=== PATIENT | female | born 1990 | race Caucasian/White ===

== ENCOUNTER 2017-11-12 19:11 | Emergency (ER) | payer MEDICAID ==
[2017-11-12 19:27] VITALS: RESP 20
[2017-11-12] MEDS ORDERED: Sodium Chloride 0.9% 1,000 ML IV ONE ×2 (20:04→21:37)
[2017-11-12] MEDS ORDERED: Sodium Chloride 0.9% 1,000 ML ONE ×2 (20:20→21:43)
[2017-11-12 20:21] LABS: BASO % 0.2 % (0.0-2.0); HEMATOCRIT 36.4 % (34.0-47.0); LYMPH # 0.7 K/uL (1.0-4.3); LYMPH % 6.8 % (20.0-40.0); MEAN CELL VOLUME 86.2 fL (81.0-99.0); MEAN CORPUSCULAR HEMOGLOBIN 29.7 pg (27.0-31.0); MEAN CORPUSCULAR HGB CONC 34.5 g/dL (33.0-37.0); MEAN PLATELET VOLUME 8.2 fL (7.2-11.7); MONO # 0.3 K/uL (0.0-0.8); MONO % 3.1 % (0.0-10.0); PLATELET COUNT 322 K/uL (130-400); RED CELL DISTRIBUTION WIDTH 13.6 % (11.5-14.5)
[2017-11-12 20:25] LABS: URINE BILIRUBIN NEGATIVE (NEGATIVE); URINE BLOOD NEGATIVE (NEGATIVE); URINE COLOR Yellow (YELLOW); URINE GLUCOSE (UA) NORMAL (Normal); URINE KETONE NEGATIVE (NEGATIVE); URINE LEUKOCYTE ESTERASE NEG Leu/uL (Negative); URINE PROTEIN NEGATIVE (NEGATIVE); URINE UROBILINOGEN NORMAL mg/dL (0.2-1.0); WBC URINE 1 /hpf (0-5)
[2017-11-12 20:34] LABS: ALKALINE PHOSPHATASE 48 U/L (38-126); ALT/SGPT 21 U/L (9-52); AST/SGOT 28 U/L (14-36); BILIRUBIN,TOTAL 0.8 mg/dL (0.2-1.3); BLOOD UREA NITROGEN 12 mg/dL (7-17); CALCIUM 8.9 mg/dl (8.6-10.4); CARBON DIOXIDE 27 mmol/L (22-30); CHLORIDE 96 mmol/L (98-107); GFR AFRICAN-AMERICAN > 60; GLUCOSE,RANDOM 82 mg/dL (65-105); POTASSIUM 3.5 mmol/L (3.6-5.2); SODIUM 134 mmol/L (132-148); TOTAL PROTEIN 9.5 g/dL (6.3-8.3)
--- NOTE | 2017-11-12 21:17 | C.PDOC ---
History Of Present Illness 27 y/o female presents to the ED with complaints of body aches, DIAZ, nausea/ vomiting, and abdominal pain since 11 am this morning. Patient denies cough, runny nose, sore throat, sick contact, dysuria, or hematuria. Time Seen by Provider: 11/12/17 19:47 Chief Complaint (Nursing): Fever History Per: Patient History/Exam Limitations: no limitations Onset/Duration Of Symptoms: Hrs (11am this morning) Current Symptoms Are (Timing): Still Present Associated Symptoms: Fever, Chills, Nausea, Vomiting Severity: Moderate Recent travel outside of the [place]: No Past Medical History Reviewed: Historical Data, Nursing Documentation, Vital Signs Vital Signs: Last Vital Signs Temp 99 F 11/12/17 22:55 Pulse 84 11/12/17 22:55 Resp 20 11/12/17 22:55 BP 110/70 11/12/17 22:55 Pulse Ox 98 11/12/17 22:55 - Medical History PMH: No Chronic Diseases Surgical History: No Surg Hx Family History: States: No Known Family Hx - Social History Hx Alcohol Use: No Hx Substance Use: No - Immunization History Hx Tetanus Toxoid Vaccination: No Hx Influenza Vaccination: No Hx Pneumococcal Vaccination: No Review Of Systems Except As Marked, All Systems Reviewed And Found Negative. Constitutional: Positive for: Fever, Chills Cardiovascular: Negative for: Chest Pain, Palpitations Respiratory: Negative for: Cough, Shortness of Breath Gastrointestinal: Positive for: Nausea, Vomiting, Abdominal Pain. Negative for : Diarrhea Genitourinary: Negative for: Dysuria Musculoskeletal: Positive for: Other (body aches) Neurological: Positive for: Headache Physical Exam - Physical Exam Appears: Well, Non-toxic, Other (appears mildly uncomfortable) Skin: Normal Color, Warm, Dry, No Rash Head: Normacephalic Oral Mucosa: Moist Cardiovascular: Rhythm Regular Respiratory: Normal Breath Sounds, No Rales, No Rhonchi, No Wheezing Gastrointestinal/Abdominal: Bowel Sounds, Soft, Tenderness (mild tenderness to palpiation at suprapubic area), No Guarding, No Rebound, Other ((-) McBurney's) Back: No CVA Tenderness Neurological/Psych: Oriented x3 ED Course And Treatment - Laboratory Results Result Diagrams: 11/12/17 22:00 11/12/17 20:16 O2 Sat by Pulse Oximetry: 100 (room air) Pulse Ox Interpretation: Normal Progress Note: Blood word, UA, UPreg and influenza swab ordered and reviewed. Patient given IV NS bolus, IV toradol, IV zofran. Reevaluation Time: 22:45 Reassessment Condition: Improved (Patient reassessed, is resting comfortably and states she feels better. On exam, abdomen is soft and nontender. Vitals improved and patient is comfortable being discharged home. Rxs for naprosyn and zofran given, and patient instructed to follow up with PMD/clinic in 1-2 days. She understands she should return to ED if symptoms worsen.) Disposition Counseled Patient/Family Regarding: Studies Performed, Diagnosis, Need For Followup, Rx Given - Disposition Referrals: [facility] at [facility] [Outside] Disposition: HOME/ ROUTINE Disposition Time: 22:45 Condition: STABLE Additional Instructions: EGUIMIENTO CON RICKETTS MDICO / CLNICA EN 1-2 DEAN USE MEDICAMENTOS SEGN SEA NECESARIO BEBER MUCHO LQUIDO REGRESE AL CARLENE DE EMERGENCIA SI TIENE ALGUNOS SNTOMAS RELACIONADOS Prescriptions: Naproxen 375 mg PO BID PRN #20 tablet PRN Reason: pain Ondansetron [Zofran Odt] 4 mg PO Q8 PRN #10 odt PRN Reason: Nausea/Vomiting Instructions: Viral Syndrome (ED) Forms: [facility] (Sinhala), Work Excuse Print Language: WELSH - POA Present On Arrival: None - Clinical Impression Clinical Impression: Viral syndrome - Scribe Statement The provider has reviewed the documentation as recorded by the Scribe Angelique Garcia All medical record entries made by the Scribe were at my direction and personally dictated by me. I have reviewed the chart and agree that the record accurately reflects my personal performance of the history, physical exam, medical decision making, and the department course for this patient. I have also personally directed, reviewed, and agree with the discharge instructions and disposition.
[2017-11-12 21:29] LABS: NEUTROPHIL 84 % (50-75); TOTAL CELLS COUNTED 100
[2017-11-12 21:30] LABS: LARGE PLATELETS PRESENT
[2017-11-12 22:07] LABS: LYMPH # 0.9 K/uL (1.0-4.3); MONO # 0.3 K/uL (0.0-0.8)
[2017-11-12 22:22] LABS: BASO % 0.2 % (0.0-2.0); LYMPH % 9.6 % (20.0-40.0); MEAN CELL VOLUME 86.1 fL (81.0-99.0); MEAN CORPUSCULAR HEMOGLOBIN 29.5 pg (27.0-31.0); MEAN CORPUSCULAR HGB CONC 34.3 g/dL (33.0-37.0); MEAN PLATELET VOLUME 7.8 fL (7.2-11.7); MONO % 3.7 % (0.0-10.0); RED CELL DISTRIBUTION WIDTH 13.6 % (11.5-14.5); WHITE BLOOD COUNT 9.3 K/uL (4.8-10.8)
[2017-11-12 22:57] VITALS: BP 110/70; PULSE 84; TEMP 99
[2017-11-13 02:44] VITALS: O2SAT 100
== END 2017-11-12 22:55 | disposition home or self-care (01) ==
LOC: C.ER 19:11
DX: B34.9 Viral infection, unspecified (principal)
CPT/HCPCS: 80053; 81001; 83690; 84703; 85025; 87804; 96361; 96374; 96375; 99284; J1885; J2405; J7040

== ENCOUNTER 2017-12-15 10:48 | Emergency (ER) | payer MEDICAID ==
[2017-12-15 11:02] VITALS: BMI 22.6
[2017-12-15 11:05] VITALS: TEMP 98.4; O2SAT 100
[2017-12-15 12:59] LABS: HCG,QUALITATIVE URINE POSITIVE (NEGATIVE)
--- NOTE | 2017-12-15 13:01 | C.PDOC ---
History Of Present Illness 27 y/o female A3 currently 6 weeks presents to ED with complaints of vaginal bleeding yesterday and back pain worsen today which prompted visit to ED. Patient states yesterday when she wiped after urinating noted blood but reports no blood today and admits to urinary frequency. Patient denies fever, chills, nausea, vomiting, dysuria or any other complaints at this time. LMP as per patient. Time Seen by Provider: 12/15/17 11:34 Chief Complaint (Nursing): Abdominal Pain History Per: Patient History/Exam Limitations: no limitations Onset/Duration Of Symptoms: Days Current Symptoms Are (Timing): Still Present Past Medical History Reviewed: Historical Data, Nursing Documentation, Vital Signs Vital Signs: Last Vital Signs Temp 98.4 F 12/15/17 11:02 Pulse 83 12/15/17 14:18 Resp 16 12/15/17 14:18 BP 98/64 L 12/15/17 14:18 Pulse Ox 100 12/15/17 15:10 - Medical History PMH: No Chronic Diseases Surgical History: No Surg Hx Family History: States: No Known Family Hx - Social History Hx Alcohol Use: No Hx Substance Use: No - Immunization History Hx Tetanus Toxoid Vaccination: No Hx Influenza Vaccination: No Hx Pneumococcal Vaccination: No Review Of Systems Constitutional: Negative for: Fever, Chills Gastrointestinal: Negative for: Nausea, Vomiting, Abdominal Pain Genitourinary: Positive for: Frequency, Vaginal Bleeding. Negative for: Dysuria , Hematuria Musculoskeletal: Positive for: Back Pain Skin: Negative for: Rash Physical Exam - Physical Exam Appears: Non-toxic, No Acute Distress Skin: Warm, Dry, No Rash Head: Atraumatic, Normacephalic Eye(s): bilateral: Normal Inspection, EOMI Nose: Normal Oral Mucosa: Moist Neck: Normal ROM, Supple Chest: Symmetrical Cardiovascular: Rhythm Regular Respiratory: Normal Breath Sounds, No Rales, No Rhonchi, No Wheezing Gastrointestinal/Abdominal: Soft, No Tenderness, No Guarding, No Rebound Back: No CVA Tenderness Neurological/Psych: Oriented x3 ED Course And Treatment - Laboratory Results Result Diagrams: 12/15/17 13:21 12/15/17 13:21 O2 Sat by Pulse Oximetry: 100 (RA) Pulse Ox Interpretation: Normal - CT Scan/US Preg 1st Trimester Other Rad Studies (CT/US): Read By Radiologist, Radiology Report Reviewed CT/US Interpretation: Indication: , bleeding. Comparison: Transvaginal pelvic ultrasound performed 03/24/13. Technique: Real-time transabdominal pelvic ultrasound was performed. In addition a transvaginal pelvic ultrasound was necessary to better depict pelvic anatomy. Findings: The uterus measures approximately 11.0 x 5.5 x 6.8 cm. Anteverted. Cervix length measures approximately 4.5 cm. There is a single intrauterine fetus present. 2 mm yolk sac. The gestational sac measures 0.8 cm, out of range for gestational age calculation. The crown-rump length measures 0.2 cm and is compatible with a gestational age of 5 weeks 5 days. heart motion was not detected during this examination. The right ovary measures 2.6 x 1.7 x 2.8 cm. The left ovary measures 3.2 x 2.4 x 3.6 cm and contains 1.6 x 1.5 x 1.8 cm complex/septated cyst. Blood flow was demonstrated to both ovaries. Impression : Single intrauterine with estimated gestational age 5 weeks 5 days by crown-rump length calculation. heart rate was not detected during this examination, which may be due to early stage of . Recommend close interval follow-up. Complex/septated left ovarian cyst measures approximately 1.8 cm. Advise an anomaly screen at 16-18 weeks gestational age. Progress Note: Patient was offered pain medication and refused. Blood work, UA ordered. Pelvis Ultrasound ordered. Discussed results with the pt and was given copy, instructed to follow up with OB in 1-2 days for re-evaluation. Disposition - Disposition Disposition: HOME/ ROUTINE Disposition Time: 14:23 Condition: STABLE Additional Instructions: Your Beta HCG today is 10,000. Follow up with OBGYN doctor in 1-3 days without fail for further evaluation. Take medications as prescribed. Return to the emergency department at any time if symptoms persist or worsen. Prescriptions: Multivit/Folic Acid/I [ Plus] 1 tab PO DAILY #20 tab Instructions: (ED) Forms: [facility] (Sierra Leonean) - Clinical Impression Clinical Impression: First trimester bleeding - PA / RESIDENCY COORDINATOR / Resident Statement MD/DO has reviewed & agrees with the documentation as recorded. - Scribe Statement The provider has reviewed the documentation as recorded by the Gary Kelley All medical record entries made by the Scribe were at my direction and personally dictated by me. I have reviewed the chart and agree that the record accurately reflects my personal performance of the history, physical exam, medical decision making, and the department course for this patient. I have also personally directed, reviewed, and agree with the discharge instructions and disposition.
[2017-12-15 13:03] LABS: SQUAMOUS EPITHIAL < 1 /hpf (0-5); URINE BACTERIA OCC (<OCC); URINE BILIRUBIN NEGATIVE (NEGATIVE); URINE BLOOD NEGATIVE (NEGATIVE); URINE CLARITY Clear (Clear); URINE COLOR Yellow (YELLOW); URINE GLUCOSE (UA) NORMAL (Normal); URINE LEUKOCYTE ESTERASE NEG Leu/uL (Negative); URINE NITRATE NEGATIVE (NEGATIVE); URINE PROTEIN NEGATIVE (NEGATIVE); URINE UROBILINOGEN NORMAL mg/dL (0.2-1.0)
[2017-12-15 13:30] LABS: BASO % 0.6 % (0.0-2.0); EOS % 0.2 % (0.0-4.0); HEMOGLOBIN 12.4 g/dL (11.0-16.0); LYMPH # 1.5 K/uL (1.0-4.3); LYMPH % 24.3 % (20.0-40.0); MEAN CELL VOLUME 85.2 fL (81.0-99.0); MEAN CORPUSCULAR HEMOGLOBIN 30.1 pg (27.0-31.0); MEAN CORPUSCULAR HGB CONC 35.3 g/dL (33.0-37.0); MEAN PLATELET VOLUME 7.7 fL (7.2-11.7); MONO # 0.3 K/uL (0.0-0.8); MONO % 5.1 % (0.0-10.0); NEUT # 4.3 K/uL (1.8-7.0); NEUT % 69.8 % (50.0-75.0); RBC 4.11 Mil/uL (3.80-5.20); RED CELL DISTRIBUTION WIDTH 14.4 % (11.5-14.5); WHITE BLOOD COUNT 6.1 K/uL (4.8-10.8)
[2017-12-15 14:04] LABS: ALBUMIN 4.4 g/dL (3.5-5.0); ALT/SGPT 15 U/L (9-52); AST/SGOT 25 U/L (14-36); BLOOD UREA NITROGEN 9 mg/dL (7-17); CALCIUM 9.3 mg/dl (8.6-10.4); GFR AFRICAN-AMERICAN > 60; GFR NON-AFRICAN AMERICAN > 60
[2017-12-15 14:18] VITALS: BP 98/64; PULSE 83; RESP 16
--- NOTE | 2017-12-15 14:24 | US ---
Indication: , bleeding Comparison: Transvaginal pelvic ultrasound performed 03/24/13 Technique: Real-time transabdominal pelvic ultrasound was performed. In addition a transvaginal pelvic ultrasound was necessary to better depict pelvic anatomy. Findings: The uterus measures approximately 11.0 x 5.5 x 6.8 cm. Anteverted. Cervix length measures approximately 4.5 cm. There is a single intrauterine fetus present. 2 mm yolk sac. The gestational sac measures 0.8 cm, out of range for gestational age calculation. The crown-rump length measures 0.2 cm and is compatible with a gestational age of 5 weeks 5 days. heart motion was not detected during this examination. The right ovary measures 2.6 x 1.7 x 2.8 cm. The left ovary measures 3.2 x 2.4 x 3.6 cm and contains 1.6 x 1.5 x 1.8 cm complex/septated cyst. Blood flow was demonstrated to both ovaries. Impression: Single intrauterine with estimated gestational age 5 weeks 5 days by crown-rump length calculation. heart rate was not detected during this examination, which may be due to early stage of . Recommend close interval follow-up. Complex/septated left ovarian cyst measures approximately 1.8 cm. Advise an anomaly screen at 16-18 weeks gestational age.
== END 2017-12-15 14:36 | disposition home or self-care (01) ==
LOC: C.ER 10:48
DX: O20.9 Hemorrhage in early pregnancy, unspecified (principal); Z3A.01 Less than 8 weeks gestation of pregnancy

== ENCOUNTER 2018-01-31 21:25 | Emergency (ER) | payer MEDICAID ==
[2018-01-31 21:26] VITALS: BMI 22.6
[2018-01-31 21:47] VITALS: BP 109/80; PULSE 94; RESP 20; TEMP 97.9; O2SAT 99
[2018-01-31 22:18] LABS: SQUAMOUS EPITHIAL < 1 /hpf (0-5); URINE BACTERIA OCC (<OCC); URINE BILIRUBIN NEGATIVE (NEGATIVE); URINE BLOOD NEGATIVE (NEGATIVE); URINE CLARITY Clear (Clear); URINE GLUCOSE (UA) NORMAL (Normal); URINE LEUKOCYTE ESTERASE NEG Leu/uL (Negative); URINE PROTEIN NEGATIVE (NEGATIVE); URINE UROBILINOGEN NORMAL mg/dL (0.2-1.0)
[2018-01-31 22:22] LABS: URINE COLOR STRAW (YELLOW)
--- NOTE | 2018-01-31 22:30 | C.PDOC ---
History Of Present Illness 27 y/o female, approx 12 weeks preg, c/o difficulty breathing due to stuffy nose for last few days with occasional cough. no fever or chillls. Time Seen by Provider: 01/31/18 21:49 Chief Complaint (Nursing): Cough, Cold, Congestion History Per: Patient History/Exam Limitations: no limitations Onset/Duration Of Symptoms: Days Current Symptoms Are (Timing): Still Present Location Of Pain: None Sick Contacts (Context): None Associated Symptoms: Cough, Sputum, Nasal Congestion. denies: Fever, Chills, Sore Throat, Myalgias, Nausea Ear Symptoms: Bilateral: None Past Medical History Reviewed: Historical Data, Nursing Documentation, Vital Signs Vital Signs: Last Vital Signs Temp 97.9 F 01/31/18 21:42 Pulse 94 H 01/31/18 21:42 Resp 20 01/31/18 21:42 BP 109/80 01/31/18 21:42 Pulse Ox 99 01/31/18 21:42 - Medical History PMH: No Chronic Diseases Family History: States: Unknown Family Hx - Social History Hx Alcohol Use: No Hx Substance Use: No - Immunization History Hx Tetanus Toxoid Vaccination: No Hx Influenza Vaccination: No Hx Pneumococcal Vaccination: No Review Of Systems Constitutional: Negative for: Fever, Chills ENT: Positive for: Nose Congestion. Negative for: Ear Pain, Throat Pain, Throat Swelling Cardiovascular: Negative for: Chest Pain, Palpitations Respiratory: Positive for: Cough. Negative for: Shortness of Breath Gastrointestinal: Negative for: Nausea, Vomiting Skin: Negative for: Rash Neurological: Negative for: Weakness, Numbness Physical Exam - Physical Exam Appears: Non-toxic, No Acute Distress, Other (using phone throughout interview and pe) Skin: Warm, Dry Head: Atraumatic, Normacephalic Eye(s): bilateral: Normal Inspection Nose: No Flaring, Discharge, Other (whitish discharge) Oral Mucosa: Moist Tongue: Normal Appearing, No Swelling Neck: Supple Chest: Symmetrical, No Deformity, No Tenderness Cardiovascular: Rhythm Regular, No Murmur Respiratory: No Decreased Breath Sounds, No Wheezing Gastrointestinal/Abdominal: Bowel Sounds, Soft, No Tenderness Back: No CVA Tenderness ED Course And Treatment O2 Sat by Pulse Oximetry: 99 Medical Decision Making Medical Decision Making: will d/c pt with nasonex and claritin, f/u pmd and litigation support analyst Disposition Counseled Patient/Family Regarding: Diagnosis, Need For Followup, Rx Given - Disposition Referrals: [facility] at [facility] [Outside] Disposition: HOME/ ROUTINE Disposition Time: 22:33 Condition: GOOD Additional Instructions: Use Nasonex one puff in each nostril every 12 hours. Take Claritin one tablet once a day. Follow up in medical clinic and with triage rn this week. Prescriptions: Loratadine [Claritin] 10 mg PO DAILY #14 tab Mometasone Furoate [Nasonex] 1 puff NS BID #1 bottle Instructions: Upper Respiratory Infection (ED) - Clinical Impression Clinical Impression: Upper respiratory infection
== END 2018-01-31 22:44 | disposition home or self-care (01) ==
LOC: C.ER 21:25
DX: O26.91 Pregnancy related conditions, unspecified, first trimester (principal); J06.9 Acute upper respiratory infection, unspecified; Z3A.12 12 weeks gestation of pregnancy

== ENCOUNTER 2018-04-12 14:39 | Emergency (ER) | payer MEDICAID ==
[2018-04-12 14:57] VITALS: BMI 31.4
[2018-04-12 15:41] LABS: SQUAMOUS EPITHIAL 2 /hpf (0-5); URINE BACTERIA FEW (<OCC); URINE BILIRUBIN NEGATIVE (NEGATIVE); URINE BLOOD 1+ (NEGATIVE); URINE CLARITY Clear (Clear); URINE COLOR Straw (YELLOW); URINE GLUCOSE (UA) NORMAL (Normal); URINE LEUKOCYTE ESTERASE NEG Leu/uL (Negative); URINE PROTEIN NEGATIVE (NEGATIVE); URINE UROBILINOGEN NORMAL mg/dL (0.2-1.0)
--- NOTE | 2018-04-12 16:37 | OBHP ---
Datetime: 04/12/2018 15:25 IP Adm Impression: , intrauterine ; No Active Labor IP Chief Complaint Other: Low back pain; lower abdominal pain IP Admit Plan: Discharge home Admit Comment, IP Provider: 27 y.o. , LMP 11/06/17, [place] 08/13/18, EGA 22w 3d c/o LBP x 3 days with radiating lower abdomnal pain x 3 days. (+) urinary frequency, every 30 minutes x 2 days. Denie s dysuria, fever, chills, nausea or vomiting, (+) good appetite. (+) quickening. Denies LOF, VB. Pr enatal care: [facility] - ; last visit 03/30/18; next visit 04/30/18. Noted for anemia P OB: x 4, all full term, all males. 2008, Cornelio, 8lb 12 oz. 2009, Cornelio, 8lb 5oz; 2013, 6+ lb, 2014, _+lb, last two at [facility]. 2010, Unclear abnormal - per patient, procedure wa s performed vaginally "to clean me out". This was a probable D_C for a failed , not the ect opic patient thought she had. Denies any abdominal surgical procedure or "injection" that w ould have been utilized to manage/treat an ectopic. This was explained to patient, who was very skept ical. 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 2007, (+) chlamydia. Denies abnormal Pap, myomata or ovarian cysts PMH: denies PSH: D_C x 1 NKDA Meds: PNV and iron - each, QD Soc Hx: denies tobacco, illicit drug or EtOH use. Lives with her mother and her children. With cur rent FOB x 1 year. 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 Fam Hx: Mother alive 44 y.o. - no med issues. Father alive 47 - heart and renal diseases. No known fam h/o cancer P.E.: as above. WD in NAD. Awake, alert, oriented to time, person and place. Pleasant and cooperat spenser Assessment: 27 y.o. [id number], 22w 3d, R/O UTI. pain most likely musculoskeletal in origin - related t otype of work, FHR auscultated - wnl. Clinically stable. Plan:1) sent U/A Addendum: 1600 - U/A: S.G. 1.010; leuk estsrase (-); all else negative/wnl Assessment: no evidence of UTI. LBP most likely musculoskeletal. Patient counseled she can take ty lenol for pain; to consider investing in a maternity support girdle; to increase p.o. intake of water to half her weight in ounces of water; to drink at least 8 oz of cranberry juice arlen, and to keep h er next scheduled appointment. Patient expressed an understanding and agrees. Patient is cl incally stable. Plan: 1) Discharge home Pelvic Type - PN: Adequate Extremities - PN: Normal Abdomen - PN: Normal Back - PN: Normal Breast - PN: Not Done Lungs - PN: Normal Heart - PN: Normal Thyroid - PN: Normal Neurologic - PN: Normal HEENT - PN: Normal General - PN: Normal FHR - Baseline A Provider: 145 Contraction Comments Provider: none Comments, ACOG Physical Exam: Back: (+) low back discomfort bilaterally at level of SI joint. No CVA tenderness Abdomen: Gravid. Soft. Non tender in all quadrants All other systems reviewed and are negative Gestation - Est Wks by US: 22w 3d Vital Signs Provider: Reviewed; Within Normal Limits Dilatation, Provider: ft Effacement, Provider: long Station, Provider: not applicable Genitourinary Exam: Normal DTRs - PN: Not Done
[2018-04-12 20:12] VITALS: BP 104/61; PULSE 90; TEMP 97.7
== END 2018-04-12 16:12 | disposition home or self-care (01) ==
LOC: EDBD 14:39 → MERGE 14:39 → C.EROB 14:39
DX: O26.892 Other specified pregnancy related conditions, second trimester (principal); M54.5 Low back pain; R10.30 Lower abdominal pain, unspecified; Z3A.22 22 weeks gestation of pregnancy

== ENCOUNTER 2018-05-07 16:50 | Emergency (ER) | payer MEDICAID, OTHER ==
[2018-04-13 11:46] VITALS: BMI 31.4
[2018-05-20 14:30] VITALS: BP 109/60; PULSE 88; O2SAT 93
== END 2018-05-07 17:30 | disposition home or self-care (01) ==
LOC: C.EROB 16:50
DX: O26.892 Other specified pregnancy related conditions, second trimester (principal); Z3A.26 26 weeks gestation of pregnancy

== ENCOUNTER 2018-08-18 11:07 | Emergency (ER) | payer OTHER ==
[2018-04-13 11:46] VITALS: BMI 31.4
--- NOTE | 2018-08-18 11:38 | OBHP ---
Datetime: 08/18/2018 11:34 IP Adm Impression: Postterm, intrauterine IP Chief Complaint Other: nst IP Admit Plan: Discharge home Admit Comment, IP Provider: at 40+weks fo nst, mno ctxs, vb , lof+fm obhx 4 x pmh de meed pnv all nkda psh de soch de nst 130 mod hong ctg1 a/p at 40weeks for NST Dc home labor gi induction on thursday f/u Pelvic Type - PN: Adequate Extremities - PN: Normal Abdomen - PN: Normal Back - PN: Normal Breast - PN: Normal Lungs - PN: Normal Heart - PN: Normal Thyroid - PN: Normal Neurologic - PN: Normal HEENT - PN: Normal General - PN: Normal FHR - Baseline A Provider: 130 Contraction Comments Provider: occ Vital Signs Provider: Reviewed; Within Normal Limits NICHD Variability Prov Fetus A: Moderate 6-25bpm NICHD Accel Fetus A IP Provider: 15X15 FHR Category Provider Fetus A: Category I Genitourinary Exam: Normal DTRs - PN: Normal
--- NOTE | 2018-08-18 12:04 | OBDCSUM ---
Datetime: 08/18/2018 12:02 Discharged to, Provider: Home Disch Instr Activity: Normal activity Disch Instr Diet: Regular Discharge Time: 08/18/2018 12:03 Disch Referrals: None Datetime: 08/18/2018 12:00 Discharged to, Provider: Home Follow up at, Provider: thursday Follow up in weeks, Provider: keyur Cabrera Activity Restrictions: Minimize stair-climbing; No sexual activity; Nothing in vagina - Interc ourse, tampons, douche Discharge Diagnosis Prov Other: nst 40week
[2018-08-18 16:12] VITALS: BP 119/81; PULSE 99
== END 2018-08-18 12:08 | disposition home or self-care (01) ==
LOC: C.EROB 11:07
DX: Z36.89 Encounter for other specified antenatal screening (principal)

== ENCOUNTER 2018-08-20 06:39 | Inpatient (IN) | payer OTHER ==
[2018-08-20 06:42] VITALS: BMI 30.3
[2018-08-20] MEDS ORDERED: Lactated Ringer's 1,000 ML IV ONE (06:56)
[2018-08-20] MEDS ORDERED: Lactated Ringer's 1,000 ML IV SCH (07:00)
--- NOTE | 2018-08-20 07:34 | OBADHP ---
Datetime: 08/20/2018 07:09 IP Adm Impression Other: grand multiparity; anemia Admit Comment, IP Provider: 28 y.o. , LMP 11/06/17, [place] 08/13/18, EGA 41, for IOL. (+) AFM. ( -) Ctx, reports mild lower pelvic pressure. care; [facility]; per patient noted for anemia. Review of records - unremarkable. P Ob: , all males, 2008, 8lb 12 oz, [place]; 2009, 8lb 7oz, [place]; 2013, 6lb 12oz, [place]; 2014, 7 lb 2oz, [place] - all no complications. approx 2012, Spont Ab, 8 weeks, with D_C. 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 Denies STIS, myomata, abnormal Pap, ovarian cysts. PMH: denies PSH: D_C NKDA Meds: PNV - last took night, 08/19. Stopped takingn iron 2 months ago Soc Hx: denies tobacco, illicit drug or EtOH use. Not with FOB, though he is involoved in the [employer] rhea. 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 no med issues. Father alive 46 - unclear heart diseases. No known fam h/o cancer P.E.: as above. WD in NAD. Awake, alert, oriented to time, person and place. Pleasant and cooperat spenser Assessment: 28 y.o. , 41 weeks for IOL. Category 1 tracing. GBS (-). Cervical ripening. P atient receptive to epidural. Patient is clinically stable. Case endorsed to oncoming Atttending. Plan: 10 ADmit 2) NPO 3) IVFS 4) Continuous EFM 5) Admission labs 6) Cytotec 50 micrograms pV now 7) Aanticipate vaginal delivery Pelvic Type - PN: Adequate Extremities - PN: Normal Abdomen - PN: Normal Back - PN: Normal Breast - PN: Not Done Lungs - PN: Normal Heart - PN: Normal Thyroid - PN: Not Done HEENT - PN: Normal General - PN: Normal Presentation-Admit: Vertex FHR - Baseline A Provider: 135 Contraction Comments Provider: irregular Comments, ACOG Physical Exam: Abdomen: Gravid. Soft. Non tender. Fundal height 40cm All other systems reviewed and re negative Gestation - Est Wks by US: 41.0 IP Hx Assessment: The History has been Reviewed and is Current Vital Signs Provider: Reviewed IP Chief Complaint: Scheduled induction of labor NICHD Variability Prov Fetus A: Moderate 6-25bpm FHR Category Provider Fetus A: Category I NICHD Decel Fetus A IP Provider: None Dilatation, Provider: 2-3 Effacement, Provider: 30 Station, Provider: -3 Genitourinary Exam: Normal DTRs - PN: Not Done EGA AdmitDate IP: 41.0 IP Adm Impression: Postterm, intrauterine ; No Active Labor; Intact Membranes IP Admit Plan: Admit to unit; Initiate labor induction protocol Datetime: 08/18/2018 11:34 IP Chief Complaint Other: nst Neurologic - PN: Normal NICHD Accel Fetus A IP Provider: 15X15
[2018-08-20 08:39] LABS: BASO % 0.4 % (0.0-2.0); EOS % 0.4 % (0.0-4.0); HEMOGLOBIN 10.2 g/dL (11.0-16.0); LYMPH # 2.2 K/uL (1.0-4.3); LYMPH % 27.5 % (20.0-40.0); MEAN CELL VOLUME 84.7 fL (81.0-99.0); MEAN CORPUSCULAR HEMOGLOBIN 28.8 pg (27.0-31.0); MEAN PLATELET VOLUME 8.1 fL (7.2-11.7); MONO # 0.6 K/uL (0.0-0.8); MONO % 7.5 % (0.0-10.0); NEUT # 5.1 K/uL (1.8-7.0); NEUT % 64.2 % (50.0-75.0); RBC 3.55 Mil/uL (3.80-5.20); RED CELL DISTRIBUTION WIDTH 14.8 % (11.5-14.5)
[2018-08-20 08:46] LABS: SQUAMOUS EPITHIAL 2 /hpf (0-5); URINE BACTERIA MOD (<OCC); URINE BILIRUBIN NEGATIVE (NEGATIVE); URINE BLOOD NEGATIVE (NEGATIVE); URINE CLARITY Clear (Clear); URINE COLOR Yellow (YELLOW); URINE GLUCOSE (UA) NORMAL (Normal); URINE LEUKOCYTE ESTERASE NEG Leu/uL (Negative); URINE PROTEIN NEGATIVE (NEGATIVE); URINE UROBILINOGEN NORMAL mg/dL (0.2-1.0)
[2018-08-20 08:57] LABS: ALBUMIN 3.5 g/dL (3.5-5.0); BLOOD UREA NITROGEN 8 mg/dL (7-17); GFR NON-AFRICAN AMERICAN > 60
[2018-08-20 08:58] LABS: ALB/GLOB RATIO 1.1 (1.0-2.1); ALT/SGPT 16 U/L (9-52); AST/SGOT 17 U/L (14-36)
--- NOTE | 2018-08-20 09:04 | OBPN ---
Datetime: 08/20/2018 08:57 IP Procedures Other: cytotec placement IP Progress Impression: Normal progression of labor; Reassuring heart rate IP Informed Consent Obtain: Risks, Benefits and Alternatives Discussed IP Progress Plan: Continue present management; Induction FHR - Baseline A Provider: 130 IP Progress Note Comment: patient is 28 yo admitted for IOL for post dates, IUP at 41 weeks vitals and tracing reviewed cytotec 25 mcg placed at 8:54am per vagina patient understands induction plan nurse present for cytotec placement cont current management Vital Signs Provider: Reviewed NICHD Accel Fetus A IP Provider: 15X15 FHR Category Provider Fetus A: Category I NICHD Variability Prov Fetus A: Moderate 6-25bpm Dilatation, Provider: 2 Effacement, Provider: thick Station, Provider: -3 NICHD Decel Fetus A IP Provider: None Datetime: 08/20/2018 07:09 Contraction Comments Provider: irregular Gestation - Est Wks by US: 41.0 Presentation-Admit: Vertex
[2018-08-20 09:16] LABS: BARBITURATES, UR NEGATIVE (NEGATIVE); BENZODIAZEPINES, UR NEGATIVE (NEGATIVE); OPIATES, UR NEGATIVE (NEGATIVE); PHENCYCLIDINE, UR NEGATIVE (NEGATIVE)
[2018-08-20] MEDS ORDERED: Nalbuphine HCL 10 mg/ml Ampule IVP ONE (13:35)
[2018-08-20] MEDS ORDERED: Phytonadione 1 mg/0.5 ml Inj (Neonatal) ONE (14:18)
[2018-08-20] MEDS ORDERED: Erythromycin 0.5% Ophth Oint 1 APPLIC/3.5 G ONE (14:18)
[2018-08-20] MEDS ORDERED: Nalbuphine HCL 10 mg/ml Ampule ONE (14:23)
--- NOTE | 2018-08-20 15:36 | OBPN ---
Datetime: 08/20/2018 13:31 IP Procedures Other: cytotec placement IP Progress Impression: Normal progression of labor; Reactive non-stress test IP Informed Consent Obtain: Risks, Benefits and Alternatives Discussed IP Procedures: Sterile Vag Exam IP Progress Plan: Continue present management; Induction; Cervical Ripening FHR - Baseline A Provider: 130s IP Progress Note Comment: patient seen and examined SVE unchanged 2/thick/posterior cytotec 25mcg per vagina placed at 13:30pm patient offerend nubain IV for pain relief, patient accepts IV medication may desire epidural in future FHR reassuring cont IOL NICHD Accel Fetus A IP Provider: 15X15 FHR Category Provider Fetus A: Category I NICHD Variability Prov Fetus A: Moderate 6-25bpm NICHD Decel Fetus A IP Provider: None
--- NOTE | 2018-08-20 18:52 | OBPN ---
Datetime: 08/20/2018 18:30 IP Progress Impression: Normal progression of labor; Reassuring heart rate IP Procedures: Sterile Vag Exam IP Progress Plan: Continue present management FHR - Baseline A Provider: 130 IP Progress Note Comment: patient seen and examined, no complaints + FM - LOF + CTX - VB pain under control SVE: 2-3/50/-3, cervix is now midposition s/p cytotec PV x 2, now padmini irregularly, will hold further meds for now Vital Signs Provider: Reviewed; Within Normal Limits NICHD Accel Fetus A IP Provider: 15X15 FHR Category Provider Fetus A: Category I NICHD Variability Prov Fetus A: Moderate 6-25bpm Dilatation, Provider: 2-3 Effacement, Provider: 50 Station, Provider: -3 NICHD Decel Fetus A IP Provider: None
[2018-08-20] MEDS ORDERED: Oxytocin 30 UNIT 30 UNITS/500 ML BAG IV ONE ×2 (21:47→21:54)
--- NOTE | 2018-08-20 21:51 | OBPN ---
Datetime: 08/20/2018 21:47 IP Informed Consent Obtain: Induction of Labor IP Procedures: Sterile Vag Exam Contraction Comments Provider: irregular FHR - Baseline A Provider: 140s IP Progress Note Comment: admitted for IOLFOR POST TERM @ 41 WEEKS. PE: AOX3 VAGINAL EXAM: /-3. PLAN: START PITOCIN. EPIDURAL NEEDED NICHD Accel Fetus A IP Provider: 10X10 NICHD Variability Prov Fetus A: Moderate 6-25bpm Dilatation, Provider: 2-3 Effacement, Provider: 50 Station, Provider: -3 NICHD Decel Fetus A IP Provider: None
[2018-08-20] MEDS ORDERED: Bupivacaine HCl/FentaNYL Cit 100 ML EPI ONE (23:01)
[2018-08-21] MEDS ORDERED: Oxycodone/Acetaminophen 5/325 mg Tab PO PRN (07:31)
--- NOTE | 2018-08-21 07:41 | OBDS ---
MATERNAL INFORMATION Provider Comments: pt was fully dilated and pushing. atrumatic, sponatneous delivery of head in PERLA positin. Nuchal cord x 1 reduced. Atrauatmic, spontaneous delivery of anterior followed b posterior s houlder followed by delivery of the body. Both oral and nasal passages of the baby were bulb suctione d. umbilcal cord was clamped adn cut adn baby was handed to [facility] on abdomen with RN assistance. Cor d blood and cord gases collectd and sent x 2. Spontaneous delivery of intact placenta with membranes. Fundus firm, good hemostasis. intact perineum.No complications live male infant apgars 9,9 weight of 8lbs 11 ounces ebl 200ml no complications LABOR SUMMARY EDC: 08/13/2018 00:00 No. Babies in Womb: 1 LABOR INFORMATION Cervical Ripening Agents: Cytotec @ 25 mcg (Annotations: inserted vaginally by Dr Leena Melendez) Oxytocin: Augmentation Group B Beta Strep: Negative Steroids Given: None Reason Steroids Not Administered: Not Applicable MEMBRANES Rupture of Membranes: 08/21/2018 07:02 Length of Rupture (hrs): 0.07 Amniotic Fluid Color: Clear Amniotic Fluid Amount: Large Amniotic Fluid Odor: Normal STAGES OF LABOR Stage 3 hrs: 0 Stage 3 min: 4 VAGINAL DELIVERY Episiotomy: None Laceration Extension: N/A Laceration Type: None CSECTION DELIVERY Primary Indication: N/A CSection Urgency: N/A BABY A INFORMATION Infant Delivery Date/Time: 08/21/2018 07:06 Method of Delivery: Vaginal Born in Route : No : N/A Forceps: N/A Vacuum Extraction: N/A Shoulder Dystocia : No SHOULDER DYSTOCIA BABY A Delivery Date/Time: 08/21/2018 07:06 PRESENTATION/POSITION BABY A Presentation: Cephalic Cephalic Presentation: Vertex Vertex Position: Left Occipital Posterior Breech Presentation: N/A PLACENTA INFORMATION BABY A Placenta Delivery Time : 08/21/2018 07:10 Placenta Method of Delivery: Spontaneous Placenta Status: Delivered SCORES BABY A Heart Rate 1 min: >100 bpm Resp Effort 1 min: Good Cry Reflex Irritability 1 min: Cough or Sneeze or Pulls Away Muscle Tone 1 min: Active Motion Color 1 min: Body Murphy, Extremities Blue Resuscitation Effort 1 min: Tactile Stimulation SCORE 1 MIN: 9 Heart Rate 5 min: >100 bpm Resp Effort 5 min: Good Cry Reflex Irritability 5 min: Cough or Sneeze or Pulls Away Muscle Tone 5 min: Active Motion Color 5 min: Body Murphy, Extremities Blue SCORE 5 MIN: 9 Heart Rate 10 min: >100 bpm Resp Effort 10 min: Good Cry Reflex Irritability 10 min: Cough or Sneeze or Pulls Away Muscle Tone 10 min: Active Motion Color 10 min: Body Murphy, Extremities Blue SCORE 10 MIN: 9 INFANT INFORMATION BABY A Gestational Age at Delivery: 41.1 Gestational Status: Term Outcome : Liveborn Condition : Stable Infant Sex: Male IDENTIFICATION/MEDS BABY A ID Band Number: [id number] ID Band Location: Left Leg; Left Arm Sensor Applied: Yes Sensor Number: [id number] Sensor Location : Cord Clamp WEIGHT/LENGTH BABY A Infant Birthweight (gms): 3935 Weight (lb): 8 Infant Weight (oz): 11 Length Inches: 20.50 Length cms: 52.1 CORD INFORMATION BABY A No. Cord Vessels: 3 Nuchal Cord : Around Neck x1, Loose Cord Blood Taken: Yes Suction: Mouth
[2018-08-21] MEDS: Multiple Vitamins Tab PO SCH (09:56)
[2018-08-21] MEDS: Oxycodone/Acetaminophen 5/325 mg Tab PO PRN (09:57)
[2018-08-21] MEDS: Apap-Butalbital-Caffeine 325-50-40mg Tab PO PRN (16:24)
[2018-08-22] MEDS: Apap-Butalbital-Caffeine 325-50-40mg Tab PO PRN ×4 (00:18→17:06)
--- NOTE | 2018-08-22 08:26 | PCM.PROC ---
Addendum Addendum: 08/22/18 08:16 Patient s/p POD#2 complaining of postdural puncture headache. Conservative treatment with bedrest, IV and PO hydration, caffeine intake and fioricet unsuccessful on alleviating the headache. Currently patient report bifrontal and occitipal headache that is constant 9/10 with neck stiffness, worsened with seating up or standing. Denies photophobia or nausea/vomitting. Patient explained of treatment to alleviate headache which included blood patch or sphenopalatine ganglion block. At this time she would prefer unless invasive approach thus sphenopalatine ganglion block and if no improvement will consider blood patch. Patient explained the risk, benefit, and alternative to sphenopalatine ganglion block. Patient placed on supine position. Topical solution Lidocaine 4% (preservative free) dripped in each nares until patient report having bitter taste, ~2mL each nares. Advice to stay supine for 30 mins before sitting up. Will reassess patient and determine next course of action.
[2018-08-22 08:34] LABS: BASO # 0.1 K/uL (0.0-0.2); BASO % 0.6 % (0.0-2.0); EOS % 0.4 % (0.0-4.0); HEMOGLOBIN 8.4 g/dL (11.0-16.0); LYMPH # 2.6 K/uL (1.0-4.3); LYMPH % 32.6 % (20.0-40.0); MEAN CELL VOLUME 83.9 fL (81.0-99.0); MEAN CORPUSCULAR HEMOGLOBIN 28.3 pg (27.0-31.0); MEAN CORPUSCULAR HGB CONC 33.7 g/dL (33.0-37.0); MEAN PLATELET VOLUME 7.8 fL (7.2-11.7); MONO # 0.6 K/uL (0.0-0.8); MONO % 7.6 % (0.0-10.0); NEUT # 4.6 K/uL (1.8-7.0); NEUT % 58.8 % (50.0-75.0); RBC 2.97 Mil/uL (3.80-5.20); RED CELL DISTRIBUTION WIDTH 15.1 % (11.5-14.5); WHITE BLOOD COUNT 7.9 K/uL (4.8-10.8)
[2018-08-22] MEDS ORDERED: Lidocaine 4% (Laryng-O-Jet) Kit MM ONE ×2 (08:40→11:00)
--- NOTE | 2018-08-22 10:00 | OBPPN ---
Datetime: 08/22/2018 09:56 PP Pain Prov: Within normal limits PP Nausea Prov: Denies PP Flatus Prov: Yes PP BM Prov: No PP Breasts Prov: Normal PP Heart Prov: Normal PP Lungs Prov: Normal PP Abdomen/Uterus Prov: Normal PP Lochia Prov: Normal PP Vulva/Perineum Prov: Normal PP CVA Tenderness Prov: Normal PP Extremities Prov: Normal PP C/S Incision Prov: Not Applicable PP Progress Prov: Normal PP Impression Prov: Normal progression PP Plan Prov: Continue present management PP Progress Note Prov: pt seen adn examied and reprots pain rlq controlld with medicaion. pt ambuiat n,b odiign, passing flatus, tolerated regular diet. pt denies nay fever, chills, nause, vomiting cp, sob VSS PE GEN NAD AAO x 3 RESP: CTAB: CVS:RRR< +S1/S2 ABDS: soft, NT/ND, +BS, no gurding ,no rebound tendenress ,no rigidity, no uterine tenderss. fundu s; below level of umbicsl, fimr VE: minimal lohcia, non foul smelling EXT; no calf tenderness, negative wilfredo's sign A/P s/p ppd #1 doign well pain deepaknet jaspal farooq encourage bresat feelilan adn ambluaiton IP PP Procedures: None Vital Signs Provider PP: Reviewed; Within Normal Limits
[2018-08-22] MEDS: Multiple Vitamins Tab PO SCH (10:42)
[2018-08-22] MEDS: Oxycodone/Acetaminophen 5/325 mg Tab PO PRN ×2 (13:51→20:44)
[2018-08-22] MEDS ORDERED: HYDROmorphone 0.5 mg/0.5 ml ISec IVP STA (14:06)
[2018-08-23] MEDS: Oxycodone/Acetaminophen 5/325 mg Tab PO PRN (02:35)
[2018-08-23] MEDS: Apap-Butalbital-Caffeine 325-50-40mg Tab PO PRN (08:16)
[2018-08-23] MEDS: Multiple Vitamins Tab PO SCH (09:14)
[2018-08-23] MEDS ORDERED: Influenza Vaccine 60 MCG/0.5 ML SYR (3 yr & up) IM ONE (10:27)
[2018-08-23] MEDS ORDERED: oxyCODONE 10 mg Immediate Release Tab PO ONE (15:45)
[2018-08-23 16:52] VITALS: RESP 18
--- NOTE | 2018-08-23 20:41 | OBDCSUM ---
Datetime: 08/23/2018 18:30 Discharged to, Provider: Home Follow up at, Provider: Clinic Disch Instr Activity: Normal activity Disch Instr Diet: Regular Discharge Diet restrict Prov: Incease caffeine, per Anesthesia Discharge Instructions, Provider: Specific instructions as noted Discharge Diagnosis, Provider: Term Delivered Discharge Time: 08/23/2018 17:30 Follow up in weeks, Provider: 6 weeks Disch Referrals: None Contraception discussed, Prov: Yes Disch Activity Restrictions: No exercising; No lifting; Minimize stair-climbing; No sexual activity; Nothing in vagina - [place], tampons, douche Discharge Comment, Provider: PPD # 2 S/P Spinal Headache Declined Blood Patch, per Anesthesia Decline pain medication Fundus firm and non-tender Stable D/C home with instructions and Rx Discharge Diagnosis Prov Other: Spinal Headache Contraception after Delivery: Undecided Datetime: 08/23/2018 09:02 Discharged to, Provider: Home Follow up at, Provider: [facility] Disch Instr Activity: Normal activity Disch Instr Diet: Regular Discharge Instructions, Provider: Routine instructions given Discharge Diagnosis, Provider: Term Delivered Discharge Time: 08/23/2018 17:30 Follow up in weeks, Provider: 2 weeks Disch Referrals: None Contraception discussed, Prov: Yes Disch Activity Restrictions: No lifting; Minimize stair-climbing; No sexual activity; Nothing in vag rio - [place], tampons, douche Contraception after Delivery: Undecided
[2018-08-24 00:13] VITALS: BP 102/64; PULSE 83; TEMP 98.2; O2SAT 99
== END 2018-08-23 17:30 | disposition home or self-care (01) | DRG 560 ==
LOC: C.4D 06:39 → C.4M 08-21 10:10
PROVIDERS: ADMIT Obstetrics & Gynecology; ATTEND Obstetrics & Gynecology
PROC: 3E0P7VZ Introduction of Hormone into Female Reproductive, Via Natural or Artificial Opening (ICD-10-PCS; principal; 2018-08-20)
PROC: 3E033VJ Introduction of Other Hormone into Peripheral Vein, Percutaneous Approach (ICD-10-PCS; 2018-08-20)
PROC: 10E0XZZ Delivery of Products of Conception, External Approach (ICD-10-PCS; 2018-08-21)
PROC: 3E0T3BZ Introduction of Anesthetic Agent into Peripheral Nerves and Plexi, Percutaneous Approach (ICD-10-PCS; 2018-08-22)
DX: O48.0 Post-term pregnancy (principal); O99.02 Anemia complicating childbirth; O89.4 Spinal and epidural anesthesia-induced headache during the puerperium; Z37.0 Single live birth; Z3A.41 41 weeks gestation of pregnancy; O69.81X0 Labor and delivery complicated by cord around neck, without compression, not applicable or unspecified

== ENCOUNTER 2018-09-10 20:58 | Emergency (ER) | payer OTHER ==
[2018-09-10 20:59] VITALS: BMI 30.3
--- NOTE | 2018-09-10 21:55 | C.PDOC ---
History Of Present Illness 28 y/o female, 3 weeks post-, presents to the ED complaining of a persistent headache for 3 weeks. Patient describes the headache as posterior, radiating to the front. Associated with nausea but no vomiting. Otherwise she denies any photophobia, visual loss, fever, chills, neck pain/stiffness, or other URI symptoms. Patient delivered her baby vaginally, and received an epidural. She reports that the headache developed before she left the hospital, and anesthesia evaluated her and recommended a blood patch, however patient declined at that time. She reports taking advil and drinking a lot of coffee with no relief. Time Seen by Provider: 09/10/18 21:29 Chief Complaint (Nursing): Headache History Per: Patient History/Exam Limitations: no limitations Onset/Duration Of Symptoms: Days Current Symptoms Are (Timing): Still Present Associated Symptoms: Nausea Past Medical History Reviewed: Historical Data, Nursing Documentation, Vital Signs Vital Signs: Last Vital Signs Temp 98.8 F 09/10/18 21:13 Pulse 88 09/10/18 21:13 Resp 18 09/10/18 21:13 BP 117/80 09/10/18 21:13 Pulse Ox 99 09/10/18 21:13 Surgical History: No Surg Hx - [facility] (08/20/18) DELIVERY OF PRODUCTS OF CONCEPTION, EXTERNAL APPROACH (08/20/18) INTRODUCE LOCAL ANESTH IN PERIPH NRV, PLEXI, PERC (08/20/18) INTRODUCTION OF OTH HORMONE INTO PERIPH VEIN, PERC APPROACH (08/20/18) Family History: States: Unknown Family Hx - Social History Hx Tobacco Use: No Hx Alcohol Use: No Hx Substance Use: No - Immunization History Hx Tetanus Toxoid Vaccination: No Hx Influenza Vaccination: No Hx Pneumococcal Vaccination: No Review Of Systems Constitutional: Negative for: Fever, Chills Eyes: Negative for: Vision Change ENT: Negative for: Nose Congestion Respiratory: Negative for: Cough, Shortness of Breath Gastrointestinal: Positive for: Nausea. Negative for: Vomiting Neurological: Positive for: Headache, Other (No photophobia). Negative for: Weakness, Numbness, Change in Speech, Dizziness Physical Exam - Physical Exam Appears: No Acute Distress, Other (Appears mildly uncomfortable) Skin: Normal Color, Warm, Dry Head: Atraumatic, Normacephalic Eye(s): bilateral: Normal Inspection (no nystagmus), PERRL, EOMI Ear(s): Bilateral: Normal Nose: Normal Neck: Normal ROM, No Midline Cervical Tenderness, Supple, Other (no meningeal signs) Chest: Symmetrical Cardiovascular: Rhythm Regular, No Murmur Respiratory: Normal Breath Sounds, No Accessory Muscle Use, No Wheezing Gastrointestinal/Abdominal: Soft, No Tenderness, No Distention Extremity: Bilateral: Atraumatic, Normal Color And Temperature, Normal ROM Neurological/Psych: Oriented x3, Normal Speech, Normal Cranial Nerves, Normal Motor, Normal Sensation, Other (No focal deficits) ED Course And Treatment - Laboratory Results Result Diagrams: 09/10/18 22:21 09/10/18 22:21 O2 Sat by Pulse Oximetry: 99 (RA) Pulse Ox Interpretation: Normal Medical Decision Making Medical Decision Making: Plan: Discussed w/ anesthesia on-call, Dr. Mack, who will come to evaluate pt in the ED for possible blood patch. Ordered labs. pt declines anti emetic medication. 0158 pt had blld patch placed by Dr Mack from anesthesia. pt has been lying supine for last 2+ hours, now standing, walking to bathroom and reports occipital headache resolved. will d/c pt home. Disposition Counseled Patient/Family Regarding: Diagnosis, Need For Followup - Disposition Referrals: [facility] at [facility] [place] [Outside] Disposition: HOME/ ROUTINE Disposition Time: 01:59 Condition: IMPROVED Additional Instructions: Please follow up with your medical doctor or in clinic next week. Return to ER for any worse symptoms. Instructions: Headache, Adult (DC) Forms: [facility] (Malagasy), General Discharge Instructions - Clinical Impression Clinical Impression: Headache following intrapartum spinal anesthesia - PA / TECHNOLOGY DEVELOPMENT INTERN / Resident Statement MD/DO has reviewed & agrees with the documentation as recorded. - Scribe Statement The provider has reviewed the documentation as recorded by the Scribe (Karrie Daigle) All medical record entries made by the Scribe were at my direction and personally dictated by me. I have reviewed the chart and agree that the record accurately reflects my personal performance of the history, physical exam, medical decision making, and the department course for this patient. I have also personally directed, reviewed, and agree with the discharge instructions and disposition.
[2018-09-10 22:27] LABS: BASO # 0.1 K/uL (0.0-0.2); BASO % 1.2 % (0.0-2.0); EOS # 0.1 K/uL (0.0-0.7); LYMPH # 2.8 K/uL (1.0-4.3); LYMPH % 49.8 % (20.0-40.0); MEAN CELL VOLUME 84.5 fL (81.0-99.0); MEAN CORPUSCULAR HEMOGLOBIN 28.3 pg (27.0-31.0); MEAN CORPUSCULAR HGB CONC 33.5 g/dL (33.0-37.0); MEAN PLATELET VOLUME 7.6 fL (7.2-11.7); MONO # 0.4 K/uL (0.0-0.8); MONO % 6.6 % (0.0-10.0); NEUT # 2.3 K/uL (1.8-7.0); NEUT % 41.4 % (50.0-75.0); NRBC % 0.1 % (0.0-2.0); RBC 4.24 Mil/uL (3.80-5.20); RED CELL DISTRIBUTION WIDTH 15.5 % (11.5-14.5); WHITE BLOOD COUNT 5.6 K/uL (4.8-10.8)
[2018-09-10 22:47] LABS: ALB/GLOB RATIO 1.1 (1.0-2.1); ALBUMIN 4.3 g/dL (3.5-5.0); ALT/SGPT 19 U/L (9-52); AST/SGOT 16 U/L (14-36); BLOOD UREA NITROGEN 12 mg/dL (7-17); CALCIUM 9.4 mg/dl (8.6-10.4); GFR NON-AFRICAN AMERICAN > 60
--- NOTE | 2018-09-10 23:50 | CP.PCM.CON ---
History of Present Illness - History of Present Illness History of Present Illness: Consult for postdural puncture headache 28yo F with no significant PMHx s/p vaginal delivery on 08/21/18 under epidural anesthesia. Patient had a unintentional dural puncture when epidural was placed for labor pain. Subsequently after delivery the patient developed positional bifrontal headache with neck stiffness on post delivery day 1. At the time conservative management with IV hydration, pain medications and increase hydration with IV and PO intake along with caffeine was unsuccessful in ameliorating the headaches. She was offered a blood patch but she refused. Patient was then offered sphenopalatine ganglion block as an alternative noninvasive approach to treat the headaches which she accepted. Sphenopalatine ganglion block was performed and she reported improvement of the frontal headache but neck discomfort persisted. Prior to discharge home the patient was offered blood patch however she refused. Today the patient returns with complaint of similar bifrontal and occipital headache that is positional and associated with neck tightness. She reports after going home the headache did not completely resolve but progressively gotten worse over the course of 3 weeks. The last five days she describes the pain intensity as 9/10 in severity, constant, made worse with sitting up or standing up and associated with nausea but no vomitting. Denies any photophobia, visual changes, fever or any back pain. No extremities weakness or numbness/paresthesia. Patient offered blood patch for the possible postdural puncture headache which she accepted. Risk/benefit/alternative explained to the patient and all que stions answered. Lab work and vital signs reviewed. VS- BP: 117/80 P: 88 RR: 18 SpO2: 99% T: 98.8 Procedure: Performed with sterile technique with gloves, mask and surgical hat Right 20G heplock placed under sterile technique. Patient placed on sitting position, back sterilely cleaned with betadine x3 and draped. 2mL of 1%lidocaine with skin wheal at L4/5 interspace. 17G Basilio needle carefully advance with KD technique (KD @5cm). 20mL of blood was sterilely drawn from the right 20G IV. The blood with slowly injected into the epidural space via the basilio needle. At the completion of procedure the epidural site was dressed and the patient was placed supine. Attempt x1. Instruction was given to the patient and the staff (ER doctor and nurse) have patient lay supine for 2 hours. Epidural kit Lot No: [id number] Past Patient History - Past Social History Smoking Status: Never Smoked - PSYCHIATRIC Hx Substance Use: No - SURGICAL HISTORY Hx Surgeries: No - ANESTHESIA Hx Anesthesia: Yes (EPIDURALS) Hx Anesthesia Reactions: No Meds Allergies/Adverse Reactions: Allergies Allergy/AdvReac Type Severity Reaction Status Date / Time No Known Allergies Allergy Verified 09/10/18 21:18 Results - Vital Signs Recent Vital Signs: Last Vital Signs Temp 98.8 F 09/10/18 21:13 Pulse 88 09/10/18 21:13 Resp 18 09/10/18 21:13 BP 117/80 09/10/18 21:13 Pulse Ox 99 09/10/18 22:03 - Labs Result Diagrams: 09/10/18 22:21 09/10/18 22:21 Labs: Laboratory Results - last 24 hr 09/10/18 09/10/18 09/10/18 22:21 22:21 22:21 WBC 5.6 RBC 4.24 Hgb 12.0 D Hct 35.9 MCV 84.5 MCH 28.3 MCHC 33.5 RDW 15.5 H Plt Count 438 H D MPV 7.6 Neut % (Auto) 41.4 L Lymph % (Auto) 49.8 H Keith % (Auto) 6.6 Eos % (Auto) 1.0 Baso % (Auto) 1.2 Neut # (Auto) 2.3 Lymph # (Auto) 2.8 Keith # (Auto) 0.4 Eos # (Auto) 0.1 Baso # (Auto) 0.1 PT 11.0 INR 1.0 APTT 33 Sodium 141 Potassium 3.9 Chloride 104 Carbon Dioxide 24 Anion Gap 17 BUN 12 Creatinine 0.7 Est GFR ( Amer) > 60 Est GFR (Non-Af Amer) > 60 Random Glucose 105 Calcium 9.4 Total Bilirubin 0.3 AST 16 ALT 19 Alkaline Phosphatase 99 Total Protein 8.2 Albumin 4.3 Globulin 3.9 Albumin/Globulin Ratio 1.1
[2018-09-11 01:57] VITALS: BP 121/68; PULSE 71; RESP 17; TEMP 98.1; O2SAT 99
== END 2018-09-11 02:03 | disposition home or self-care (01) ==
LOC: C.ER 20:58
DX: O89.4 Spinal and epidural anesthesia-induced headache during the puerperium (principal)